=== PATIENT | female | born 1970 | race Caucasian/White ===

== ENCOUNTER 2020-06-26 19:51 | Emergency (ER) | payer MEDICAID ==
[~2020-06-26] VITALS: Ht 160 cm; Wt 104.3 kg
[2020-06-26 20:06] VITALS: BP_SYST 117
[2020-06-26] MEDS ORDERED: HYDROcodone/ACETAMIN 5-325 MG TAB (NORCO/ VICODIN) PO ONE (21:00)
[2020-06-26] MEDS ORDERED: LIDOCAINE 1% 10 MG/ML, 20 ML MDV INJ ONE (21:00)
[2020-06-26] MEDS ORDERED: DIPH-TET-PERTUS Vaccine 0.5 ML VIAL (ADACEL) I.M. ONE (21:00)
[2020-06-26] MEDS ORDERED: HYDROcodone/ACETAMIN 5-325 MG TAB (NORCO/ VICODIN) ONE (21:25)
== END 2020-06-26 21:53 | disposition left against medical advice (07) ==
LOC: SED 19:51
DX: M79.601 Pain in right arm (principal); F17.200 Nicotine dependence, unspecified, uncomplicated; W01.0XXA Fall on same level from slipping, tripping and stumbling without subsequent striking against object, initial encounter; Y93.89 Activity, other specified; Y92.89 Other specified places as the place of occurrence of the external cause; Y99.8 Other external cause status
CPT/HCPCS: 90715; 99283

== ENCOUNTER 2020-06-27 07:46 | Emergency (ER) | payer MEDICAID ==
[~2020-06-27] VITALS: Ht 160 cm; Wt 104.3 kg
[2020-06-27 07:46] VITALS: BP_SYST 113
== END 2020-06-27 09:36 | disposition home or self-care (01) ==
LOC: SED 07:46
DX: S52.121A Displaced fracture of head of right radius, initial encounter for closed fracture (principal); S01.81XA Laceration without foreign body of other part of head, initial encounter; Z88.0 Allergy status to penicillin; W18.39XA Other fall on same level, initial encounter; Y93.89 Activity, other specified; Y92.89 Other specified places as the place of occurrence of the external cause; Y99.8 Other external cause status
CPT/HCPCS: 70450-TC; 73090; 76376; 99284

== ENCOUNTER 2020-07-19 08:16 | Emergency (ER) | payer MEDICAID ==
[~2020-07-19] VITALS: Ht 160 cm; Wt 107.5 kg
--- NOTE | 2020-07-19 08:36 | NUR ---
Triaged and placed in tent
[2020-07-19 08:43] VITALS: BP_SYST 143
--- NOTE | 2020-07-19 09:30 | NUR ---
VIBHA Hammond at bedside examining patient. Addendum: 07/19/20 at 1045 by [email or web address] VIBHA Hammond at bedside examining patient.
--- NOTE | 2020-07-19 09:50 | NUR ---
Patient transported to radiology via wheelchair, accompanied by staff. Addendum: 07/19/20 at 1046 by [email or web address] Patient transported to radiology via wheelchair, accompanied by staff.
[2020-07-19] MEDS ORDERED: HYDROcodone/ACETAMIN 5-325 MG TAB (NORCO/ VICODIN) PO ONE (10:00)
[2020-07-19] MEDS ORDERED: ONDANSETRON 4 MG ODT TAB ONE (11:17)
[2020-07-19] MEDS ORDERED: ONDANSETRON 4 MG ODT TAB PO ONE (11:30)
[2020-07-19 12:20] VITALS: BP_SYST 143
--- NOTE | 2020-07-19 12:20 | NUR ---
Patient given written and verbal discharge instructions and verbalizes understanding. ER MD discussed with patient the results and treatment provided. Patient in stable condition. ID arm band removed. Rx of ZOFRAN given. Patient educated on pain management and to follow up with PMD. Pain Scale 0/10. Opportunity for questions provided and answered. Medication side effect fact sheet provided.
== END 2020-07-19 12:20 | disposition home or self-care (01) ==
LOC: SED 08:16
DX: F07.81 Postconcussional syndrome (principal); J45.909 Unspecified asthma, uncomplicated; E11.9 Type 2 diabetes mellitus without complications; F17.200 Nicotine dependence, unspecified, uncomplicated; Z90.49 Acquired absence of other specified parts of digestive tract; Z88.0 Allergy status to penicillin; Z90.710 Acquired absence of both cervix and uterus
CPT/HCPCS: 70450; 76376; 99284; Q0162